=== PATIENT | female | born 1955 | race Two or more races ===

== ENCOUNTER 2024-04-24 08:43 | Outpatient (CLI) | payer OTHER ==
[2024-04-24 09:35] LABS: URINE APPEARANCE Clear; URINE BILIRRUBIN Negative (NEGATIVE); URINE BLOOD Negative; URINE COLOR Yellow; URINE GLUCOSE Negative (NEGATIVE); URINE KETONE Negative (NEGATIVE); URINE LEUKOCYTE Negative; URINE NITRATE Negative; URINE PROTEIN Negative (NEGATIVE); URINE UROBILINOGEN 0.2 E.U./dl
[2024-04-24 09:39] LABS: URINE EPITHELIAL CELLS 13.4 uL (0.0-38.8); URINE WBC 3.6 uL (0.0-23.2)
[2024-04-24 09:42] LABS: URINE RBC 0.4 uL (0.0-20.8)
[2024-04-24 09:44] LABS: HEMATOCRIT 39.7 % (36.0-45.00); HEMOGLOBIN 13.2 g/dL (12.0-15.00); MEAN CELL VOLUME 88.2 fL (80.00-100.00); MEAN CORPUSCULAR HEMOGLOBIN 29.3 pg (27.00-32.0); MEAN CORPUSCULAR HGB CONC 33.2 g/dl (32.0-36.0); PLATELET COUNT 181 K/uL (150-450)
[2024-04-24 10:23] LABS: ALBUMIN 3.7 gm/dL (3.4-5.0); BILIRUBIN TOTAL 0.54 mg/dL (0.3-1.2); CALCIUM 9.1 mg/dL (8.5-10.1); CHOL HDL RATIO 3.3 (0-5.0); CREATININE SERUM 0.7 mg/dL (0.55-1.02); GFR 83.46; GLOBULINA 3.5 G/DL (2.4-3.5); POTASSIUM 4.5 mEq/L (3.5-5.1); TOTAL PROTEIN 7.2 gm/dL (6.4-8.2); TSH 1.78 uIU/mL (0.358-3.74)
== END 2024-04-24 08:50 | disposition home or self-care (01) ==
LOC: LAB 08:43
DX: D63.8 Anemia in other chronic diseases classified elsewhere (principal); I11.9 Hypertensive heart disease without heart failure; E78.89 Other lipoprotein metabolism disorders; E03.4 Atrophy of thyroid (acquired); N39.0 Urinary tract infection, site not specified